=== PATIENT | female | born 1990 | race African-American/Black ===

== ENCOUNTER 2017-11-07 19:43 | Emergency (ER) | payer BC, MEDICAID ==
[~2017-11-07] VITALS: Ht 157.5 cm; Wt 72.6 kg
[2017-11-07 20:00] VITALS: BP 110/73
[2017-11-07] MEDS ORDERED: Morphine Sulfate 4mg/ml Inj IVP ONE (20:00)
[2017-11-07 20:18] LABS: EOSINOPHILS % (AUTO) 3.6 % (0.0-3.0); HEMATOCRIT 35.5 % (37.0-47.0); HEMOGLOBIN 12.3 G/DL (12.0-16.0); LYMPHOCYTES % (AUTO) 32.9 % (20.0-45.0); MEAN CORPUSCULAR VOLUME 92 FL (80-99); MONOCYTES % (AUTO) 7.2 % (1.0-10.0); NEUTROPHILS % (AUTO) 55.3 % (45.0-75.0); PLATELET COUNT 319 K/UL (150-450); RED BLOOD COUNT 3.88 M/UL (4.20-5.40); RED CELL DISTRIBUTION WIDTH 12.1 % (11.6-14.8); WHITE BLOOD COUNT 8.6 K/UL (4.8-10.8)
[2017-11-07 20:21] LABS: APPEARANCE,URINE CLEAR; BILIRUBIN, URINE NEGATIVE (NEGATIVE); COLOR,URINE PALE YELLOW; GLUCOSE, URINE (UA) NEGATIVE (NEGATIVE); KETONES,URINE NEGATIVE (NEGATIVE); LEUKOCYTE ESTERASE ,URINE 1+ (NEGATIVE); NITRITE,URINE NEGATIVE (NEGATIVE); PH,URINE 6.5 (4.5-8.0); PROTEIN,URINE NEGATIVE (NEGATIVE); UROBILINOGEN,URINE NORMAL MG/DL (0.0-1.0)
[2017-11-07 20:26] LABS: INR 0.9 (0.9-1.1)
[2017-11-07 20:27] LABS: ANION GAP 10 mmol/L (5-15); BLOOD UREA NITROGEN 10 mg/dL (7-18); CALCIUM 9.1 MG/DL (8.5-10.1); CARBON DIOXIDE 25 MMOL/L (21-32); CHLORIDE 102 MMOL/L (98-107); CREATININE 0.6 MG/DL (0.55-1.30); POTASSIUM 3.7 MMOL/L (3.5-5.1); SODIUM 136 MMOL/L (136-145)
[2017-11-07 20:31] LABS: ALANINE AMINOTRANSFERASE 22 U/L (12-78); ALBUMIN/GLOBULIN RATIO 0.7 (1.0-2.7); ALKALINE PHOSPHATASE 58 U/L (46-116); ASPARTATE AMINO TRANSFERASE 17 U/L (15-37); BILIRUBIN,TOTAL 0.2 MG/DL (0.2-1.0)
--- NOTE | 2017-11-07 22:03 | Diagnostic Imaging Report ---
EXAM: US After First Trimester, Transabdominal CLINICAL HISTORY: ABD PAIN TECHNIQUE: Real-time transabdominal obstetrical ultrasound of the maternal pelvis and a second or third trimester with image documentation. COMPARISON: No relevant prior studies available. FINDINGS: Fetus: Single living intrauterine is seen. Heart rate: heart rate 157 bpm.. Presentation: Fetus is in transverse right position. Placenta: Placenta grade 0. No abruption. Amniotic fluid: Unremarkable. Anatomy: Evaluation of anatomy is limited due to early gestational age. BIOMETRICS Gestational age: Calculated ultrasound age 15 weeks 0 days gestation. Gestational age by last menstrual. 15 weeks 2 days. MAURA: Estimated date of delivery by ultrasound 05/01/18. BPD: Biparietal diameter 15 weeks 0 days +/-1 week 1 day. HC: Head circumference 15 weeks 0 days +/-1 week 1 day. AC: Abdominal circumference 15 weeks 1 day +/-1 week 5 days. FL: Femur length 14 weeks 6 days +/-1 weeks 3 days. MATERNAL: Uterus: Unremarkable. No myometrial mass. Cervix: Unremarkable as visualized. Closed. Free fluid: No free fluid. IMPRESSION: 1. Single living intrauterine with size consistent with dates. Calculated ultrasound age 15 weeks 0 days gestation. 2. Estimated date of delivery by ultrasound 05/01/18.
--- NOTE | 2017-11-07 22:36 | Emergency Room Report ---
History of Present Illness General Chief Complaint: Vaginal Source: Patient Present Illness HPI Patient is 16 weeks . Today she started having severe left lower quadrant pain. She's had cysts in the past. Pain is 10/10 constant and not radiating.. She denies any dysuria. She denies any fevers. At 8 weeks she had some hemorrhaging and was told that she was threatening to miscarry. She's had no bleeding since that time. She has a slight amount of spotting at this time just when she wiped herself today. No clots. No other discharge. Reports knowledge of Rh + status. No back pain, NV or change in bowels. No calf pain or swelling. H/O migraines. Min headache at this time. H/O asthma. No wheezing. Allergies: Coded Allergies: No Known Allergies (Unverified , 11/07/17) Patient History Past Medical History: see triage record Social History: Denies: smoking Social History Narrative 2 sons at home Last Menstrual Period: jul 23 Now: Yes - 16 weeks : 3 Para: 3 Reviewed Nursing Documentation: PMH: Agreed; PSxH: Agreed Nursing Documentation-PMH Hx Asthma: Yes Review of Systems All Other Systems: negative except mentioned in HPI Physical Exam Vital Signs Date Time Temp Pulse Resp B/P (MAP) Pulse Ox O2 Delivery O2 Flow Rate FiO2 11/07/17 19:40 98.2 91 18 110/73 98 Room Air 98.2 Sp02 EP Interpretation: reviewed, normal General Appearance: well appearing, no apparent distress, GCS 15 Head: normocephalic Eyes: bilateral eye normal inspection, bilateral eye PERRL ENT: moist mucus membranes Neck: supple Respiratory: lungs clear, normal breath sounds Cardiovascular #1: regular rate, rhythm Cardiovascular #2: 2+ radial (R) Gastrointestinal: normal inspection, normal bowel sounds, no mass, non- distended, no rebound, guarding, tenderness - LLQ Genitourinary: no CVA tenderness, deferred - for ultrasound Musculoskeletal: back normal, gait/station normal, normal range of motion, no calf tenderness Neurologic: alert, oriented x3, grossly normal Psychiatric: mood/affect normal Skin: normal inspection, warm/dry Medical Decision Making Diagnostic Impression: Primary Impression: Vaginal bleeding Additional Impressions: Pelvic pain 15 weeks gestation of ER Course Patient presents with abdominal pain and vaginal bleeding that 16 weeks . Differential includes ruptured ovarian cyst, threatened miscarriage, abruption and UTI amongst others. Evaluation will be with labs and ultrasound. The patient will be treated with IV hydration and analgesia. Labs only remarkable for elevated quant HCG. Ultrasound with viable 15 week IUP. FHT 157. Patient improved with resolution pain. No further bleeding. Discussed findings with patient and need for further evaluation by Ob. Patient stable for outpatient observation and treatment. Laboratory Tests Test 11/07/17 19:52 White Blood Count 8.6 K/UL (4.8-10.8) Red Blood Count 3.88 M/UL (4.20-5.40) L Hemoglobin 12.3 G/DL (12.0-16.0) Hematocrit 35.5 % (37.0-47.0) L Mean Corpuscular Volume 92 FL (80-99) Mean Corpuscular Hemoglobin 31.6 PG (27.0-31.0) H Mean Corpuscular Hemoglobin Concent 34.6 G/DL (32.0-36.0) Red Cell Distribution Width 12.1 % (11.6-14.8) Platelet Count 319 K/UL (150-450) Mean Platelet Volume 6.5 FL (6.5-10.1) Neutrophils (%) (Auto) 55.3 % (45.0-75.0) Lymphocytes (%) (Auto) 32.9 % (20.0-45.0) Monocytes (%) (Auto) 7.2 % (1.0-10.0) Eosinophils (%) (Auto) 3.6 % (0.0-3.0) H Basophils (%) (Auto) 1.0 % (0.0-2.0) Prothrombin Time 9.4 SEC (9.30-11.50) Prothrombin Time INR 0.9 (0.9-1.1) PTT 26 SEC (23-33) Urine Color Pale yellow Urine Appearance Clear Urine pH 6.5 (4.5-8.0) Urine Specific [place] 1.010 (1.005-1.035) Urine Protein Negative (NEGATIVE) Urine Glucose (UA) Negative (NEGATIVE) Urine Ketones Negative (NEGATIVE) Urine Occult Blood 1+ (NEGATIVE) H Urine Nitrite Negative (NEGATIVE) Urine Bilirubin Negative (NEGATIVE) Urine Urobilinogen Normal MG/DL (0.0-1.0) Urine Leukocyte Esterase 1+ (NEGATIVE) H Urine RBC 0-2 /HPF (0 - 2) Urine WBC 2-4 /HPF (0 - 2) Urine Squamous Epithelial Cells Moderate /LPF (NONE/OCC) H Urine Bacteria Few /HPF (NONE) Sodium Level 136 MMOL/L (136-145) Potassium Level 3.7 MMOL/L (3.5-5.1) Chloride Level 102 MMOL/L (98-107) Carbon Dioxide Level 25 MMOL/L (21-32) Anion Gap 10 mmol/L (5-15) Blood Urea Nitrogen 10 mg/dL (7-18) Creatinine 0.6 MG/DL (0.55-1.30) Estimate Glomerular Filtration Rate > 60 mL/min (>60) Glucose Level 79 MG/DL (74-106) Calcium Level 9.1 MG/DL (8.5-10.1) Total Bilirubin 0.2 MG/DL (0.2-1.0) Aspartate Amino Transferase (AST) 17 U/L (15-37) Alanine Aminotransferase (ALT) 22 U/L (12-78) Alkaline Phosphatase 58 U/L (46-116) Total Protein 7.6 G/DL (6.4-8.2) Albumin 3.0 G/DL (3.4-5.0) L Globulin 4.6 g/dL Albumin/Globulin Ratio 0.7 (1.0-2.7) L Lipase 119 U/L (73-393) Human Chorionic Gonadotropin, Quant 139351 mIU/mL (1-6) H CT/MRI/US Diagnostic Results CT/MRI/US Diagnostic Results : Imaging Test Ordered: pelvic U/S Impression 15 week 1 day IUP, no placental abnormalities Status: improved Disposition: HOME, SELF-CARE Condition: Improved Scripts Hydrocodone Bit/Acetaminophen 5-325* (NORCO 5-325*) 1 Each Tablet 1 TAB ORAL Q6H PRN for For Pain, #10 TAB 0 Refills Prov: Kevan Davis M.D. 11/07/17 Referrals: NON PHYSICIAN (PCP) Kevan Davis M.D. Nov 07, 2017 22:36
[2017-11-07] MEDS ORDERED: NORCO 5-325 TA1 EACH ORAL (22:38)
[2017-11-07 22:47] VITALS: BP 112/75
== END 2017-11-07 22:47 | disposition home or self-care (01) ==
LOC: EDBD 19:43 → EMR 20:03
DX: O20.9 Hemorrhage in early pregnancy, unspecified (principal); Z3A.15 15 weeks gestation of pregnancy; O26.891 Other specified pregnancy related conditions, first trimester; R10.2 Pelvic and perineal pain; J45.909 Unspecified asthma, uncomplicated
CPT/HCPCS: 36415; 76805; 80053; 81003; 83690; 84702; 85025; 85610; 85730; 96360; 96361; 96374; 96375; 99284; J2270; J2405